=== PATIENT | female | born 1970 | race Two or more races ===

== ENCOUNTER → 2024-08-31 | Outpatient (BNVA) | payer MEDICAID, SELFPAY | END | disposition home or self-care (01) | PROVIDERS: Visit Provider Urology | DX: N39.0 Urinary tract infection, site not specified (principal); G89.4 Chronic pain syndrome; R10.2 Pelvic and perineal pain; N39.46 Mixed incontinence; I10 Essential (primary) hypertension; E66.9 Obesity, unspecified; Z68.41 Body mass index [BMI] 40.0-44.9, adult; E78.00 Pure hypercholesterolemia, unspecified; E11.9 Type 2 diabetes mellitus without complications; K21.9 Gastro-esophageal reflux disease without esophagitis | CPT/HCPCS: 51701; 81003; 99213; G0463 ==

== ENCOUNTER 2025-02-17 17:18 | Observation (INO) | payer MEDICAID, SELFPAY ==
--- NOTE | 2025-02-14 07:00 | EKG_ITS ---
[facility] Test Date: 2025-02-14 Pat Name: NATHAN MCGRAW Department: Room: - Gender: Female Equine Breeder: CEE : 1970 Requested By: El Swift Order Number: [id number] Reading MD: El Swift Measurements Intervals [place] Rate: 64 P: 28 AK: 168 QRS: 9 QRSD: 87 T: 46 QT: 417 QTc: 431 Interpretive Statements SINUS RHYTHM POSSIBLE ANTERIOR MYOCARDIAL INFARCTION , PROBABLY OLD [30 ms Q WAVE IN V3/V4, OR R < 0.2 mV IN V4] Compared to ECG 01/07/2020 10:57:28 No significant changes /store/S0/[id number]/ecg/[id number].pdf
[2025-02-14 08:57] VITALS: BMI 46.4
[2025-02-14 10:22] LABS: Basophils # (Auto) 0.0 Thou/mm3 (0.0-0.2); Basophils % (Auto) 1 % (0-2.5); Eosinophils # (Auto) 0.3 Thou/mm3 (0.0-0.5); Eosinophils % (Auto) 4 % (0-10); Hematocrit 37.4 % (36.0-46.0); Hemoglobin 12.6 g/dL (12.0-16.0); Immature Granulocytes Auto 0.01 Thou/mm3 (0.00-0.00); Lymphocytes # (Auto) 2.3 Thou/mm3 (1.0-4.8); Lymphocytes % (Auto) 35 % (10-50); Mean Corpuscular HGB Conc 33.7 g/dl (31.0-37.0); Mean Corpuscular Hemoglobin 31.3 pg (25.0-35.0); Mean Corpuscular Volume 93 fL (80-100); Monocytes # (Auto) 0.6 Thou/mm3 (0.0-0.8); Monocytes % (Auto) 9 % (0-12); Neutrophils # (Auto) 3.4 Thou/mm3 (1.8-7.7); Neutrophils % (Auto) 51 % (37-80); Nucleated Red Blood Cell # 0.00 Thou/mm3 (0.00-0.00); Nucleated Red Blood Cell % 0 /100 WBC (0); Platelet Count 382 Thou/mm3 (140-440); RDW Standard Deviation 43.2 fL (36.4-46.3); Red Blood Count 4.03 Miln/mm3 (4.00-5.20); White Blood Count 6.6 Thou/mm3 (3.6-11.0)
[2025-02-14 10:27] LABS: INR 1.1 (0.9-1.3); Partial Thromboplastin Time 28.2 Seconds (22.0-36.0); Prothrombin Time 11.4 Seconds (9.0-12.2)
[2025-02-14 10:44] LABS: Alanine Aminotransferase 10 U/L (10-49); Albumin, Serum 4.7 gm/dL (3.5-5.0); Albumin/Globulin Ratio 1.6 (1.2-2.2); Alkaline Phosphatase 72 U/L (46-116); Anion Gap 9 (7-16); Aspartate Amino Transferase 25 U/L (0-34); BUN/Creatinine Ratio 17 Ratio (12-20); Bilirubin,Total 0.4 mg/dL (0.3-1.2); Blood Urea Nitrogen 10 mg/dL (9-23); Calcium 9.3 mg/dL (8.3-10.6); Calcium (Corrected) 9.3 mg/dL (8.5-10.1); Carbon Dioxide 30.0 mMol/L (20.0-31.0); Chloride 102 mMol/L (98-107); Creatinine (Component) 0.6 mg/dL (0.6-1.3); Estimated Creatinine Clearance 122.6 mL/min (>60); Globulin 3.0 gm/dL (2.3-3.5); Glucose 91 mg/dL (74-106); Osmolality,Calculated 280 (275-295); Potassium 3.7 mMol/L (3.4-5.1); Sodium 141 mMol/L (136-145); Total Protein 7.7 gm/dL (5.7-8.2); eGFR > 60 See Note
[2025-02-17] VITALS (19 sets, daily range): BP systolic 109–158; BP diastolic 54–94; PULSE 70–86; RESP 13–21; TEMP 36.2–36.8; O2SAT 93–100; BMI 45.6
--- NOTE | 2025-02-17 10:01 | PD.SUROPNT ---
Date of Procedure 02/17/25 Pre Op Diagnosis Symptomatic varicose veins in both lower extremities Post Op Diagnosis Same as pre-op diagnosis Procedure Varicose vein excisions in both lower extremities 63 incisions in the right lower extremity 10 incisions in the left lower extremity Findings All marked varicose veins were successfully removed or disrupted Procedure Description With the patient standing in the preop area all varicose veins to be removed were carefully marked with a sharpie pen. The patient was then brought to the operating room and both lower extremities were sterilely prepped and draped after general anesthesia was induced. A timeout was performed. The operation was performed by making a small skin prabhu in all the marked areas with a #11 blade then it grasping the varicosities with a mosquito clamp and sequentially excising them. After all veins were successfully excised or disrupted hemostasis was obtained in the wounds and the limb was cleaned. Steri-Strips were then applied to the incisions and the leg was sterilely dressed with gauze Kerlix and Mansoor bandage wraps. The patient was moved to recovery in stable condition having tolerated the procedure well Anesthesia other (Laryngeal mask anesthesia) Implants Implants comments: None Pathology / specimen Other (Bilateral lower extremity varicose veins) Estimated Blood Loss 100 Condition Stable Disposition PACU Surgeon El Maria MD Surgical Staff Operation Date: 02/17/25 08:30 Case Staff Anesthesiologist: Bart Grigsg RN First Assistant: Aidee Leon
--- NOTE | 2025-02-17 10:35 | SUR.PHASEI ---
1020: Pt received in [facility] via gurney. Report from Albina GARCIA and Ramsey SCHREIBER. Pt groggy. Easily aroused with eye opening. Resp even, unlabored. VS stable. Dressing to left leg dry, clean, intact. Bilateral pedal pulses strong, regular. No c/o pain.
--- NOTE | 2025-02-17 10:59 | SUR.PHASEI ---
1048: Pt resting with no complaints voiced. Resp even, unlabored. VS stable. Dressing remains dry, clean, intact. Bilateral pedal pulses strong, regular. Denies pain.
--- NOTE | 2025-02-17 11:02 | SUR.PHASEII ---
1102: Pt more awake, alert. Sitting up tolerating po fluids with no difficulty swallowing and no n/v.
--- NOTE | 2025-02-17 13:00 | SUR.PHASEII ---
Report from Chelle RN
--- NOTE | 2025-02-17 13:45 | SUR.PHASEII ---
Report to Chelle RN
--- NOTE | 2025-02-17 15:05 | PD.SURPROG ---
Documentation for date of: 02/17/25 Subjective Subjective Brief History: Patient is a 54-year-old woman who underwent elective varicose vein excision today in both lower extremities. They were getting her up for discharge and she started to bleed from one of the incisions on the right anterior thigh. This is the area where she had her largest varicosities. When I examined her the bleeding it stopped and there was no hematoma so we placed a compressive wrap with Coban for 2 hours at which point the nurses got the patient up again and she started to bleed from the same spot. I examined the patient once again and there was no evidence of hematoma and no active bleeding at that time. The retained portion of the varicosities just need time to coagulate before she can be discharged therefore the patient is being admitted for observation. The hospitalist, Dr. Bowen was contacted and he agrees to admit the patient for observation overnight Exam Vital Signs Temp Pulse Resp BP Pulse Ox O2 Flow Rate 97.7 F 79 13 129/71 97 6 02/17/25 13:30 02/17/25 13:45 02/17/25 13:45 02/17/25 13:45 02/17/25 13:45 02/17/25 10:40 PROCEDURES: Procedures Varicose vein excisions in both lower extremities 63 incisions in the right lower extremity 10 incisions in the left lower extremity
--- NOTE | 2025-02-17 15:06 | SUR.PHASEII ---
1140: Pt fully awake, oriented x3. at bedside. VS stable. Preparing pt for discharge. Pt sitting up on side of rnapavine. Noted bleeding from dressing upper right thigh. Bleeding profuse. Pt layed back down. Pressure applied to incision site. Dr. Maria notified.
--- NOTE | 2025-02-17 16:07 | ESHP_ITS ---
Documentation for date of: 02/17/25 HPI History of Present Illness History of present illness: Patient is a 54-year-old woman with PMH of T2DM who underwent elective varicose vein excision on 02/17/25 in both lower extremities but was admitted for observation overnight due to continuous bleeding from one of the incisions on the right anterior thigh. Per note by Vascular Surgery (Dr. Maria), patient had been getting prepared for discharge before she began to bleed from the right anterior thigh area which was also where she had her largest varicosities. The bleeding had stopped momentarily and no hematoma was observed so she had a compressive wrap with Coban placed for 2 hours before they try to get her up again but she started to bleed again from the same spot. Vascular surgery believes that the retained portion of the varicosities just need time to coagulate before she can be discharged safely. Patient herself only complains of post-surgical pain that is manageable and denies any other symptoms or complaints. Vitals showed: BP 138/72 HR 76 RR 18 Temp 97.2 SpO2 97% on room air 02/14 CBC was WNL. 02/14 coagulation panel was WNL. 02/14 CMP was WNL. Imagin/10 EKG showed sinus rhythm 64 and normal QTc 431. Patient was admitted for observation overnight due to continuous bleeding from one of the incisions on the right anterior thigh s/p varicose vein excision procedure. Review of Systems Review of Systems Systems Reviewed: All systems reviewed, normal except as documented Exam Vital Signs Temp Pulse Resp BP Pulse Ox O2 Flow Rate 97.7 F 79 13 129/71 97 6 02/17/25 13:30 02/17/25 13:45 02/17/25 13:45 02/17/25 13:45 02/17/25 13:45 02/17/25 10:40 Narrative Exam General: A/O x3, morbidly obese female in no acute distress. Skin: Warm, dry, intact, no obvious rash. Head: Normocephalic, atraumatic. Eyes: PERRL, EOMI. Anicteric, vision grossly intact. Ears: No ear pain, no ear discharge, Hearing grossly intact. Nose: No nasal discharge. Mouth/Throat: Oral mucosa moist. No obvious lesions in oropharynx. Neck: Neck supple, non-tender, no cervical lymphadenopathy. Cardiovascular: Regular rate and rhythm, no murmur, no JVD or carotid bruits. +S1/S2. Respiratory: Bilateral lungs are clear to auscultation, respirations unlabored, no crackles, no wheezing. No accessory muscle use. Gastrointestinal: Soft, nontender, non-distended, no palpable masses. No guarding or rebound tenderness. Peristalsis present. Extremities: Bilateral lower extremities dressed in compressive wrappings from ankle to upper thigh without evidence of active bleeding or hematoma. 2+ DP and PT pulses in feet bilaterally. No signs of cyanosis, edema, or clubbing. Neuro: No focal deficits observed. Conversant, moving all extremities. No overt cerebellar signs/incoordination. Psychiatric: Cooperative, appropriate affect. Results: Labs 02/14/25 09:20 02/14/25 09:20 Quality Measures Quality Measures none Medications Home Medications and Allergies Home Medications ?Medication ?Instructions ?Recorded ?Confirmed ?Type ibuprofen 600 mg tablet 600 mg PO Q8H PRN pain 07/2302/17/25 History estradiol 0.0375 mg/24 hr weekly 0.0375 mg topical QWE EK 02/14/25 02/17/25 History transdermal patch gabapentin 300 mg capsule 300 mg PO DAILY 02/14/25 History losartan 50 mg-hydrochlorothiazide 1 tab PO DAILY 02/0502/17/25 History 12.5 mg tablet progesterone micronized 100 mg 100 mg PO DAILY 5 02/17/25 History capsule tirzepatide 2.5 mg/0.5 mL 2.5 mg subcut QWEEK 02/14/25 02/14/25 History subcutaneous pen injector (Mounjaro) Allergies Allergy/AdvReac Type Severity Reaction Status Date / Time codeine Allergy Hallucinati Verified 02/17/25 10:34 ng Visit Medications Dextrose (Dextrose 50%-Water Inj 50 Ml Syringe) 25 ml IV Q15MIN PRN PRN Reason: BG 50-70 responsive npo pt Stop: 03/19/25 16:02 Dextrose (Dextrose 50%-Water Inj 50 Ml Syringe) 50 ml IV Q15MIN PRN PRN Reason: BG <50 OR BG <70 & pt unresponsive Stop: 03/19/25 16:02 Gabapentin (Gabapentin 300 Mg Capsule) 300 mg PO QDAY OTILIA Stop: 03/19/25 16:14 Glucagon (Glucagon Inj 1 Mg Vial) 1 mg IM Q15MIN PRN PRN Reason: BG <70, and no IV access Lactated Ringer's (Lactated Ringers) 1,000 mls @ 20 mls/hr IV .Q24H ONE Stop: 02/18/25 05:59 Insulin Human Lispro (Insulin Lispro (Admelog) 1 Unit/0.01 Ml Unit) 0 unit SC AC OTILIA; Protocol Stop: 03/19/25 16:59 Melatonin (Melatonin 3 Mg Tablet) 3 mg PO HS PRN PRN Reason: Insomnia Stop: 03/19/25 20:59 Discontinued Medications Cefazolin Sodium (Ancef 2gm Ivpb) 2 gm in 100 mls @ 100 mls/hr IV X1 ONE Stop: 02/17/25 06:59 Assessment & Plan Plan Patient is a 54-year-old woman with PMH of T2DM who underwent elective varicose vein excision on 02/17/25 in both lower extremities but was admitted for observation overnight due to continuous bleeding from one of the incisions on the right anterior thigh. #Post-surgical bleeding from varicosities of right anterior thigh #Status post 02/17 varicose vein excision procedure Patient has been continuing to bleed from her varicosities of the right anterior thigh after her elective varicose vein excision procedure On exam, patient's bilateral lower extremities are dressed and compressive wrappings from ankle to upper thigh without signs of active bleeding or hematoma Rx: -Per vascular surgery, the retained portion of the varicosities just need time to coagulate so all that is necessary for us to do at this time is to monitor her #T2DM 01/07/20 hemoglobin A1c was 6.0 On home Mounjaro 2.5 mg SC weekly Rx: -Insulin sliding scale Hospital Management: Disposition: Admitted to [facility] for observation overnight due to continuous bleeding from one of the incisions on the right anterior thigh status post varicose vein excision procedure Diet: Carbohydrate Consistent Low GI Prophylaxis: Not Indicated Bowel Prophylaxis: None DVT Prophylaxis: Contraindicated CODE STATUS: Full Code I have examined the patient and conferred with my attending, Dr. Bowen, and my senior resident, Dr. Barba, regarding them. Dhaval Weathers DO PGY-1 Internal Medicine Attending Provider Attestation/Addendum I have examined the patient, reviewed labs and imaging findings, discussed the case with the resident(s), and reviewed entered orders. I agree with the plan of care as outlined in this note, with these additional summaries/recommendations: After examination of the patient and review of the clinical data, I feel that this patient needs admission to the hospital for further treatment and evaluation. Patient is a 54-year-old female with a medical history of diabetes mellitus type 2, obesity, and varicose veins who presented to [facility] on 02/17/2025 for intervention of varicose veins via vascular surgery. Patient apparently tolerated the procedure well but unfortunately developed postop bleeding from varicose veins and is not safe to discharge at this time. Case discussed with in-house vascular surgeon who recommends overnight observation to allow varicose sites to coagulate further. Will monitor for bleeding closely. Transfuse for hemoglobin less than 7. Patient has underlying diabetes mellitus type 2 and start insulin sliding scale with Accu-Cheks. Target blood sugar 140- 180 while hospitalized. Patient updated on the plan and in agreement. All questions answered satisfaction. Please see residents note for additional details and management. Dr. Jessi MD
--- NOTE | 2025-02-17 17:00 | PC.NURSE ---
pt to room from surgery. dressings to lower extremities CDI, Report received from Chelle GARCIA at bedside
--- NOTE | 2025-02-17 17:37 | SUR.PHASEII ---
1146: Dr. Maria in to assess pt. Bleeding stopped. All new, clean dressing to right leg applied,. 1346: Attempting to discharge pt again. Right upper leg began bleeding again. Pressure applied. Bleeding stopped. Dr. Maria notified. Clean dressing applied. 1430: Dr. Maria in to assess pt. Decided to admit pt for observation. 1600; Pt needed to void. Bed shaw provided. Pt voided 400cc clear yellow urine. 1630: Report to Milla RN 3rd floor. 1640: Pt transferred to Rnm. 357 in stable condition.
[2025-02-17] MEDS: GABAPENTIN 300 MG CAPSULE PO (18:04)
[2025-02-17] MEDS: HYDROcodone/APAP 5/325 TABLET 1 TAB PO (18:29)
[2025-02-18] VITALS: BP 125/62; PULSE 72; RESP 18; TEMP 36.1; O2SAT 94
[2025-02-18 04:00] VITALS: BP 122/54; PULSE 70; RESP 18; TEMP 36.5; O2SAT 93
[2025-02-18 08:00] VITALS: BP 111/61; PULSE 88; RESP 17; TEMP 36.6; O2SAT 95
[2025-02-18] MEDS: GABAPENTIN 300 MG CAPSULE PO (09:26)
[2025-02-18 09:44] LABS: Basophils # (Auto) 0.0 Thou/mm3 (0.0-0.2); Basophils % (Auto) 0 % (0-2.5); Eosinophils # (Auto) 0.0 Thou/mm3 (0.0-0.5); Eosinophils % (Auto) 0 % (0-10); Hematocrit 31.8 % (36.0-46.0); Hemoglobin 10.7 g/dL (12.0-16.0); Immature Granulocytes Auto 0.02 Thou/mm3 (0.00-0.00); Lymphocytes # (Auto) 2.1 Thou/mm3 (1.0-4.8); Lymphocytes % (Auto) 24 % (10-50); Mean Corpuscular HGB Conc 33.6 g/dl (31.0-37.0); Mean Corpuscular Hemoglobin 31.0 pg (25.0-35.0); Mean Corpuscular Volume 92 fL (80-100); Monocytes # (Auto) 0.6 Thou/mm3 (0.0-0.8); Monocytes % (Auto) 6 % (0-12); Neutrophils # (Auto) 6.1 Thou/mm3 (1.8-7.7); Neutrophils % (Auto) 69 % (37-80); Nucleated Red Blood Cell # 0.00 Thou/mm3 (0.00-0.00); Nucleated Red Blood Cell % 0 /100 WBC (0); Platelet Count 344 Thou/mm3 (140-440); RDW Standard Deviation 43.1 fL (36.4-46.3); Red Blood Count 3.45 Miln/mm3 (4.00-5.20); White Blood Count 8.9 Thou/mm3 (3.6-11.0)
--- NOTE | 2025-02-18 11:37 | ESDS_ITS ---
<Statement entered by Angela Barba MD - 02/19/25 14:27> Patient was seen and examined by me personally. I have reviewed the below documentation by the team resident and agree with its findings with any exceptions as below. Discharge plan was discussed with the attending, Dr. Bowen. Angela Barba, PGY-3 Planned Discharge Date 02/18/25 DS: Providers Provider Date of admission: 02/17/25 17:18 Primary care physician: Kosta Chi PA-C Admitting Provider: El Maria MD Attending Provider on Admission: El Maria MD Consults: 02/17/25 14:12 Consult to Adult Hospitalist Stat Comment: Consulting Provider: Shine Bowen Attending Provider on DC: Shine Bowen MD Discharging Provider: Dhaval Weathers MD DS: Diagnosis Problem List Completed Was Problem List Reviewed/Reconciled?: Yes Hospital Course Hospital Course Hospital course: Summary: Patient is a 54-year-old woman with PMH of T2DM who underwent elective varicose vein excision on 02/17/25 in both lower extremities but was admitted for observation overnight due to continuous bleeding from one of the incisions on the right anterior thigh. Hospital: During patient's hospital course, she was monitored from the afternoon of 02/17 until the morning of 02/18 without any bleeding events. Patient was given a trial of ambulation on the morning of 02/18 which led to some bleeding again. Vascular Surgery (Dr. Maria) went to evaluate the patient, addressed the issue, and cleared the patient for discharge on the same day. Patient is safe to discharge. Further discharge instructions below. Discharge Instructions: -Follow-up with PCP within 1 week of discharge. If you do not have appointment, please follow-up with the [facility] with Dr. Singh. Call [phone] to make an appointment. -Return to ED if symptoms persist or return #Post-surgical bleeding from varicosities of right anterior thigh #Status post 02/17 varicose vein excision procedure #T2DM Status at Discharge Cognitive/Behavioral Status at Discharge: stable Functional Status at Discharge: independent ambulation Overall Status at Discharge: patient is back to baseline Patient's care plan was discussed with my attending, Dr. Bowen, and senior resident, Dr. Barba. Dhaval Weathers, DO Internal Medicine, PGY-1 Time Spent with Patient Time attestation: Total time spent providing and/or coordinating discharge services: Time spent: Greater than 30 minutes Quality: VTE Deep Vein Thrombosis/Pulmonary Embolism Present on Admission: No Exam Vital Signs Temp Pulse Resp BP Pulse Ox O2 Del Method O2 Flow Rate 97.9 F 88 17 111/61 95 Room Air 6 02/18/25 08:00 02/18/25 08:00 02/18/25 08:00 02/18/25 08:00 02/18/25 08:00 02/18/25 08:00 02/17/25 10:40 Narrative Exam General: A/O x3, morbidly obese female in no acute distress. Skin: Warm, dry, intact, no obvious rash. Head: Normocephalic, atraumatic. Eyes: PERRL, EOMI. Anicteric, vision grossly intact. Ears: No ear pain, no ear discharge, Hearing grossly intact. Nose: No nasal discharge. Mouth/Throat: Oral mucosa moist. No obvious lesions in oropharynx. Neck: Neck supple, non-tender, no cervical lymphadenopathy. Cardiovascular: Regular rate and rhythm, no murmur, no JVD or carotid bruits. +S1/S2. Respiratory: Bilateral lungs are clear to auscultation, respirations unlabored, no crackles, no wheezing. No accessory muscle use. Gastrointestinal: Soft, nontender, non-distended, no palpable masses. No guarding or rebound tenderness. Peristalsis present. Extremities: Bilateral lower extremities dressed in compressive wrappings from ankle to upper thigh without evidence of active bleeding or hematoma. 2+ DP and PT pulses in feet bilaterally. No signs of cyanosis, edema, or clubbing. Neuro: No focal deficits observed. Conversant, moving all extremities. No overt cerebellar signs/incoordination. Psychiatric: Cooperative, appropriate affect. Discharge Plan Plan Patient Disposition: HOME (Self Care) Patient condition on transfer: Stable Care Plan Goals: -Follow-up with Primary Care Physician within 1 week of discharge. If you do not have appointment, please follow-up with the [facility] with Dr. Singh. Call [phone] to make an appointment. -Recommended to continue rest of the home medications -Follow up with Dr. Maria on 02/21 -Return to Emergency Department if symptoms persist or return -Consulte con álvarez m?dico de cabecera dentro de la semana posterior al luci. Si no tiene jacey, comun?quese con la [facility] con el Dr. Singh. Llame al [phone] para programar keyshawn jacey. -Se recomienda continuar con el lety de la medicaci?n que leela en casa. -Consulte con el Dr. Maria el . -Regrese al Departamento de Emergencias si los s?ntomas persisten o reaparecen. Prescriptions/Referrals Prescriptions/Med Rec: Continued ibuprofen 600 mg tablet 600 mg PO Q8H PRN (Reason: pain) progesterone micronized 100 mg capsule 100 mg PO DAILY estradiol 0.0375 mg/24 hr patch weekly 0.0375 mg TOPICAL QWEEK Patient Comments: APPLY 1 PATCH TO SKIN 1 TIME PER WEEK gabapentin 300 mg capsule 300 mg PO DAILY Patient Comments: TOME 1 C PSULA POR V A ORAL JANY VECES AL D A losartan-hydrochlorothiazide 50-12.5 mg tablet 1 tab PO DAILY Patient Comments: TOME 1 TABLETA POR V A ORAL TODOS LOS D Mounjaro 2.5 mg/0.5 mL pen injector 2.5 mg SUBCUT QWEEK Patient Comments: INJECT 2.5MG SUBCUTANEOUS ONCE A WEEK X 4 WEEKS Referrals: El Maria MD [Physician, Vascular Surgery] Kosta Chi PA-C [Primary Care Provider] Patient/Caregiver Discharge Instructions Discharge Activity: activity as tolerated Education Materials: Anesthesia: General Anesthesia, Surgery Anesthesia After, Surgery for Varicose Veins, Preventing Surgical Site Infections, ED T.ECrow Chowdary-Post-Op Instructions for Vein Ablation (Sudanese), [facility] General Discharge-Sudanese Print Language: Sudanese Activity Restrictions/Additional Instructions: Please schedule follow up appointment with Dr. Maria. Please follow Dr. Avila's discharge instructions. Stand Alone Forms: Vanita Award Info., Patient Portal Info Letter Discharge Order Discharge Orders: Discharge (Routine); Ordered 02/18/25 Ordered By: Casey Singh Quality Discharge Quality Measures none MD Attestestation MD Attestation I have examined the patient, reviewed labs and imaging findings, discussed the case with the resident(s), and reviewed entered orders. I agree with the plan of care as outlined in this note. Time Spent; [address] Jessi MD
[2025-02-18 12:00] VITALS: BP 149/81; PULSE 83; RESP 18; TEMP 36.4; O2SAT 95
--- NOTE | 2025-02-18 12:30 | CHAP ---
Patient was visited by the Spiritual Care Volunteer who prayed for them. (Volunteer was in the hospital from 09:15-12:30)
--- NOTE | 2025-02-18 14:36 | PC.SS ---
Rounding: Post op with Dr. Maria, pt bleeding from site, monitor overnight. DC plan over weekend home
--- NOTE | 2025-02-18 15:34 | PD.SURPROG ---
Documentation for date of: 02/18/25 Subjective Subjective Brief History: Patient is a 54-year-old woman who underwent elective varicose vein excision today in both lower extremities. They were getting her up for discharge and she started to bleed from one of the incisions on the right anterior thigh. This is the area where she had her largest varicosities. When I examined her the bleeding it stopped and there was no hematoma so we placed a compressive wrap with Coban for 2 hours at which point the nurses got the patient up again and she started to bleed from the same spot. I examined the patient once again and there was no evidence of hematoma and no active bleeding at that time. The retained portion of the varicosities just need time to coagulate before she can be discharged therefore the patient is being admitted for observation. The hospitalist, Dr. Bowen was contacted and he agrees to admit the patient for observation overnight. Exam Vital Signs Temp Pulse Resp BP Pulse Ox O2 Del Method O2 Flow Rate 97.6 F 83 18 149/81 H 95 Room Air 6 02/18/25 12:00 02/18/25 12:00 02/18/25 12:00 02/18/25 12:00 02/18/25 12:00 02/18/25 12:00 02/17/25 10:40 PROCEDURES: Procedures Varicose vein excisions in both lower extremities 63 incisions in the right lower extremity 10 incisions in the left lower extremity
--- NOTE | 2025-02-18 15:36 | PD.SURPROG ---
Documentation for date of: 02/18/25 Subjective Subjective Brief History: 54 y/o woman had varicose vein excisions yesterday and was kept overnight for bleeding. She walked this morning with no problem but when they were getting her ready for DC there was bleeding from another spot. I had the staff rewrapped the leg firmly until I arrive. I just removed the bandage and had her walk in the hallway with no bleeding. I rewrapped the leg with coban and told her to use the bathroom as needed at home very very little walking beyond that. She has an appointment in my office Friday Exam Vital Signs Temp Pulse Resp BP Pulse Ox O2 Del Method O2 Flow Rate 97.6 F 83 18 149/81 H 95 Room Air 6 02/18/25 12:00 02/18/25 12:00 02/18/25 12:00 02/18/25 12:00 02/18/25 12:00 02/18/25 12:00 02/17/25 10:40 Assessment & Plan Assessment Additional comments: Follow up as scheduled Friday PROCEDURES: Procedures Varicose vein excisions in both lower extremities 63 incisions in the right lower extremity 10 incisions in the left lower extremity
[2025-02-18 16:00] VITALS: BP 132/85; PULSE 86; RESP 17; TEMP 36.3; O2SAT 96
--- NOTE | 2025-02-18 16:10 | PC.NURSE ---
Discharge orders in, pt says her will not be available for ride until around 1800
== END 2025-02-18 18:41 | disposition home or self-care (01) ==
LOC: S3NX 17:19
PROVIDERS: Anesthesiology; Admitting Provider Surgery Vascular Surgery; PCP Behavior Technician; Referring Provider Surgery Vascular Surgery; Visit Provider Surgery Vascular Surgery
PROC: (CPT 36475; principal; 2025-02-17 08:30)
DX: I83.813 Varicose veins of bilateral lower extremities with pain (principal); Z01.810 Encounter for preprocedural cardiovascular examination; E11.9 Type 2 diabetes mellitus without complications
CPT/HCPCS: 37766; 37765; 36415; 80053; 85025; 85610; 85730; 93005; A4217; A4649; C1894; G0378; J0131; J0690; J1100; J1885; J2250; J2371; J2405; J2704; J3010; A9270